=== PATIENT | male | born 1970 ===

== ENCOUNTER 2017-07-04 14:25 | Emergency (ER) | payer OTHER ==
[2017-07-04 14:29] VITALS: BP 119/71; PULSE 93; RESP 16; TEMP 98.8; O2SAT 99
--- NOTE | 2017-07-04 15:02 | ED PDOC ---
HPI: General Adult Time Seen by Provider: 07/04/17 14:51 Chief Complaint (Nursing): Foreign Body Chief Complaint (Provider): Foreign body sensation History Per: Patient History/Exam Limitations: no limitations Onset/Duration Of Symptoms: Days (today 1pm) Additional Complaint(s): Pt. was eating fish and felt a piece of spine from the fish stuck in his thorat. Has pain mild to the right neck. Able to swallow but has a sensation to the right neck. No drooling, numbness, tingles, chest pain, dyspnea, vomit, nausea. No abd pain. Past Medical History Reviewed: Nursing Documentation, Vital Signs Vital Signs: Last Vital Signs Temp 98.8 F 07/04/17 14:27 Pulse 93 H 07/04/17 14:27 Resp 16 07/04/17 14:27 BP 119/71 07/04/17 14:27 Pulse Ox 99 07/04/17 15:08 - Medical History PMH: No Chronic Diseases - Surgical History Surgical History: No Surg Hx - Family History Family History: States: Unknown Family Hx - Social History Drugs: Denies - Home Medications Home Medications: Ambulatory Orders Medication Instructions Recorded Acetaminophen [Acetaminophen Extra 1,000 mg PO Q6 PRN #60 tablet 04/17/16 Strength] Diphenhydramine HCl [[employer]] 50 mg PO Q6 PRN #30 capsule 04/17/16 Oseltamivir [Tamiflu] 75 mg PO BID #10 cap 04/17/16 Prednisone 50 mg PO DAILY #3 tablet 04/17/16 - Allergies Allergies/Adverse Reactions: Allergies Allergy/AdvReac Type Severity Reaction Status Date / Time ibuprofen Allergy RASH Verified 04/17/16 22:48 Review of Systems ROS Statement: Except As Marked, All Systems Reviewed And Found Negative ENT: Positive for: Throat Pain Musculoskeletal: Positive for: Neck Pain Physical Exam - Reviewed Nursing Documentation Reviewed: Yes Vital Signs Reviewed: Yes - Physical Exam Appears: Positive for: Non-toxic, No Acute Distress Head Exam: Positive for: ATRAUMATIC, NORMAL INSPECTION, NORMOCEPHALIC Skin: Positive for: Normal Color, Warm, DRY ENT: Positive for: Normal ENT Inspection. Negative for: Nasal Congestion, Pharyngeal Erythema, Tonsillar Exudate, Tonsillar Swelling Neck: Positive for: Normal, Painless ROM, Supple (when swallowing, feels a small sensation in the right front neck like fish spine is there), Trachea Midline. Negative for: Decreased ROM Cardiovascular/Chest: Positive for: Regular Rate, Rhythm Respiratory: Positive for: CNT, Normal Breath Sounds Gastrointestinal/Abdominal: Positive for: Normal Exam, Bowel Sounds, Soft. Negative for: Tenderness Back: Positive for: Normal Inspection. Negative for: L CVA Tenderness, R CVA Tenderness Extremity: Positive for: Normal ROM. Negative for: Tenderness, Pedal Edema Neurologic/Psych: Positive for: Alert, Oriented - ECG O2 Sat by Pulse Oximetry: 99 Pulse Ox Interpretation: Normal - Radiology X-Ray: Read By Radiologist X-Ray Interpretation: No Acute Disease - Progress ED Course And Treament: 1659: Pt. not in room. Per staff he potentially walked out. Can't be found. Last see was [id number]. Had capacity to make decisions. No weakness or leg pain. Disposition - Clinical Impression Clinical Impression: Neck pain on right side - Patient ED Disposition Is Patient to be Admitted: No - Disposition Disposition: Left W/O Treatment Disposition Time: 17:01 Condition: STABLE
--- NOTE | 2017-07-04 16:43 | RAD ---
PROCEDURE: Radiographs of the neck (soft tissue). HISTORY: fish spine sensation on R COMPARISON: None. TECHNIQUE: Frontal and Lateral Radiographs of the neck, optimized for soft tissue visualization. FINDINGS: SOFT TISSUES: Unremarkable. No radiopaque foreign body seen. CERVICAL SPINE: Grossly unremarkable. OTHER FINDINGS: None. IMPRESSION: Unremarkable radiographs of the soft tissues of the neck.
== END 2017-07-04 16:45 | disposition left against medical advice (07) ==
LOC: H.ER 14:25
DX: M54.2 Cervicalgia (principal)